=== PATIENT | female | born 1960 | race Caucasian/White ===

== ENCOUNTER → 2019-09-26 07:52 | Outpatient (CLI) | payer OTHER, SELFPAY ==
--- NOTE | ~2019-09-26 | MMUS_ITS ---
EXAMINATION: MM diagnostic mammo unilat LT, US breast LT limited HISTORY: Left breast mass on screening mammogram TECHNIQUE: Additional 3-D tomosynthesis images of the left breast were performed and synthetic 2-D im ages were generated. CAD analysis was submitted and interpreted. High resolution limited left breast ultrasound was performed. COMPARISON: 09/02/2019, 08/27/2018, 08/21/2017 FINDINGS: MAMMOGRAPHIC FINDINGS: There is a 9.8 x 6.2 mm oval, circumscribed, equal density mass in the middle third of the outer wai st at the 3:00 location 8 cm from the nipple. There is also an adjacent 5 mm mass with similar mammog raphic features. No suspicious calcification or architectural distortion are identified. ULTRASOUND: There is a 10 mm x 3 mm oval, circumscribed, parallel, hypoechoic mass with no posterior features or internal vascularity at the 2:00 location 5 cm from the nipple. A 6 mm x 3 mm mass with similar sonog raphic features is also seen at the 2:00 location 5 cm from the nipple. IMPRESSION: 1. Probably benign left breast mass. 2. Recommend 6 month follow-up left diagnostic mammogram and ultrasound. BI-RADS category 3, probably benign findings. Reviewed, dictated and finalized at location A. NCIAL SERVICES AUDITOR IMPRESSION: 1. Probably benign left breast mass. 2. Recommend 6 month follow-up left diagnostic mammogram and ultrasound. BI-RADS category 3, probably benign findings.
== END ==
PROVIDERS: Visit Provider Obstetrics & Gynecology
DX: R92.8 Other abnormal and inconclusive findings on diagnostic imaging of breast (principal)
CPT/HCPCS: 76642; 77065

== ENCOUNTER 2020-05-01 09:51 | Emergency (ER) | payer OTHER, SELFPAY ==
--- NOTE | ~2020-05-01 | CT_ITS ---
EXAMINATION: CT abdomen pelvis w con DATE: 05/01/2020 13:18 INDICATION: Constipation. Left abdominal pain. TECHNIQUE: Computed tomography (CT) of the abdomen and pelvis was performed with 100 mL Omnipaque 350 intravenous contrast. Automated exposure control and iterative reconstruction technique were employe d. The dose-length product was 1075.78 mGy-cm. COMPARISON: CT abdomen and pelvis 06/02/2019 FINDINGS: The visualized portions of the lung bases demonstrate mild atelectasis in right lower lobe. No pleural effusion. The heart size is normal. No pericardial effusion. There is a small sliding hia luke hernia. The liver, gallbladder, spleen, pancreas, adrenal glands, and kidneys are normal. There a re no dilated loops of bowel. There is diverticulosis of the colon without evidence of diverticulitis . There is a small volume of stool in the colon. The appendix is normal. There are no pathologically enlarged lymph nodes. There is no free intraperitoneal fluid. There is mild thoracolumbar spondylosis . IMPRESSION: 1. Small sliding hiatal hernia. Reviewed, dictated and finalized at location A.
[2020-05-01 10:04] VITALS: BP 136/75; PULSE 98; RESP 18; TEMP 36.7; O2SAT 95
[2020-05-01 10:14] LABS: Basophils Percent Auto 0.2 % (0.2-1.2); Eosinophils Absolute Auto 0.1 K/mm3 (0-0.3); Hemoglobin 14.7 g/dL (12.0-15.0); Immature Granulocyte Absolute 0.15 K/mm3 (0.00-0.031); Immature Granulocyte Percent A 1.7 % (0-0.5); Lymphocytes Absolute Auto 1.43 K/mm3 (0.9-3.2); Lymphocytes Percent Auto 16.3 % (18.3-44.2); Mean Corpuscular HGB Conc 33.4 g/dl (32-36); Mean Corpuscular Hemoglobin 28.6 pg (26-34); Mean Corpuscular Volume 85.6 fl (80-100); Monocytes Absolute Auto 0.7 K/mm3 (0.1-0.6); Monocytes Percent Auto 8.2 % (2.6-8.5); Neutrophils Absolute Auto 6.4 K/mm3 (1.3-6.7); Neutrophils Percent Auto 72.6 % (45.5-73.1); Platelet Count Result 259 k/mm3 (150-375); Red Blood Count 5.14 M/mm3 (4.2-5.4); Red Cell Distribution Width 13.4 % (11.5-14.5); White Blood Count 8.8 K/mm3 (4.5-10.0)
[2020-05-01 10:27] LABS: Alanine Aminotransferase 25 U/L (4-35); Albumin Level 4.3 g/dL (3.5-5.1); Alkaline Phosphatase 84 U/L (38-126); Anion Gap 6 mmol/L (8-16); Aspartate Amino Transferase 28 U/L (14-36); Bilirubin,Total 0.6 mg/dL (0.2-1.3); Blood Urea Nitrogen 11 mg/dL (7-17); Calcium 9.3 mg/dL (8.4-10.2); Carbon Dioxide 25 mmol/L (22-30); Chloride 107 mmol/L (98-107); Estimated CRCL calculation 97 ml/min; Estimated Glomerular Filt Rate > 60; Glucose 125 mg/dL (65-105); Lipase 53 U/L (23-300); Sodium 138 mmol/L (137-145)
[2020-05-01 11:00] LABS: Add Urine Microscopic? YES; Appearance Urine Cloudy (Clear); Bacteria Urine Trace /hpf; Bilirubin Urine Negative (Negative); Blood Urine 1+ (Negative); Color Urine Yellow (Yellow); Glucose Urine UA Negative (Negative); Ketones Urine Negative (Negative); Leukocyte Esterase Ur 1+ LEU/UL (Negative); Mucus Urine Rare /lpf; Nitrate Urine Negative (Negative); Protein Urine Negative (Negative); RBC Urine 0-2 /hpf (0-2); Specific Grav Ur 1.013 (1.001-1.035); Squamous Epithelial Cell Urine Many /hpf (Few); Transitional Epi Cells Urine Rare /hpf (None Seen); Urobilinogen Urine Negative mg/dL (<2.0)
[2020-05-01] MEDS: SODIUM CHLORIDE 0.9% IV 1,000 ML 999 ML IV CONT (12:59)
--- NOTE | 2020-05-01 14:24 | ED.ABDPAIN ---
HPI - Abdominal Pain General Chief Complaint: Abdominal Pain <KACI Hickey Last Filed: 05/01/20 14:32> Stated Complaint: left side pain/constipation <KACI Hickey Last Filed: 05/01/20 14:32> Time Seen by Provider: 05/01/20 12:36 <KACI Hickey Last Filed: 05/01/20 14:32> Source: patient <KACI Hickey Last Filed: 05/01/20 14:32> Mode of arrival: ambulatory <KACI Hickey Last Filed: 05/01/20 14:32> Limitations: no limitations <KACI Hickey Last Filed: 05/01/20 14:32> History of Present Illness HPI narrative: Patient is a 59-year-old female who presents to emergency department for evaluation of left-sided abdominal pain and pressure noting history of constipation has been attempting [id number] medications with no improvement symptoms of been present for 1 week or more patient notes history of chronic constipation. Patient denies URI symptoms fever chills vomiting diarrhea rectal bleeding or melena and on arrival is in the room in no distress pain does not radiate and is made worse with eating <KACI Hickey Last Filed: 05/01/20 14:32> Related Data Home Medications: Home Medications Medication Instructions Recorded Confirmed alendronate 70 mg tablet 70 mg PO WEEKLY 04/16/20 04/16/20 <KACI Hickey Last Filed: 05/01/20 14:32> Allergies/Adverse Reactions: Allergies Allergy/AdvReac Type Severity Reaction Status Date / Time neomycin Allergy Intermediate BLISTERS, Verified 05/01/20 12:27 BREAKS OUT bacitracin Allergy Unknown Unknown Verified 05/01/20 12:27 Penicillins Allergy Unknown Unknown Verified 05/01/20 12:27 polymyxin B Allergy Unknown Unknown Verified 05/01/20 12:27 promethazine Allergy Unknown Unknown Verified 05/01/20 12:27 Sulfa (Sulfonamide Allergy Unknown Unknown Verified 05/01/20 12:27 Antibiotics) <KACI Hickey Last Filed: 05/01/20 14:32> Review of Systems Review of Systems: All systems reviewed & are unremarkable except as noted in HPI and below <Deniz Bourgeois PA-C - Last Filed: 05/01/20 14:32> PMFSH Past Medical History Medical History: Medical History (Updated 05/01/20 @ 14:31 by Deniz Bourgeois PA-C) Anxiety Epigastric abdominal pain Essential (primary) hypertension Hyperlipidemia <Deniz Bourgeois PA-C - Last Filed: 05/01/20 14:32> Social History Social History: Social History Smoking status: Never smoker Alcohol intake: never Gender identity (if verbalized by the patient): Female <Deniz Bourgeois PA-C - Last Filed: 05/01/20 14:32> Exam Narrative: Exam Narrative: GENERAL: Well-appearing, well-nourished, and in no acute distress. HEAD: Normocephalic, atraumatic. EYES: PERRLA and EOMI. ENT: Nares clear, no rhinorrhea or epistaxis. Mucous membranes moist. CHEST: Clear to auscultation. No respiratory distress. No wheezes rales or rhonchi HEART: Regular rate and rhythm. No murmur heard. Normal peripheral pulses. ABDOMEN: Soft, left-sided abdominal tenderness to palpation, nondistended EXTREMITIES: Normal range of motion. No edema. SKIN: Warm, dry, no rash. NEURO: No focal deficits. Alert and oriented x3. PSYCH: Normal mood and affect. <Deniz Bourgeois PA-C - Last Filed: 05/01/20 14:32> Course Course Emergency Course: Patient in the room in no distress aware of case findings treatment plan and diagnosis agreeing to follow-up as directed or to return if symptoms worsen or concerns patient was hydrated in the emergency department <Deniz Bourgeois PA-C - Last Filed: 05/01/20 14:32> Vital Signs Vital signs: Vital Signs Temperature 36.7 C 05/01/20 10:04 Pulse Rate 98 05/01/20 10:04 Respiratory Rate 18 05/01/20 10:04 Blood Pressure 136/75 05/01/20 10:04 Pulse Oximetry 95 05/01/20 10:04 Tempera
[2020-05-01 15:10] VITALS: BP 133/74; PULSE 88; RESP 18; O2SAT 99
== END 2020-05-01 15:11 | disposition home or self-care (01) ==
PROVIDERS: Emergency Provider Emergency Medicine; PCP Internal Medicine
DX: R10.9 Unspecified abdominal pain (principal); I10 Essential (primary) hypertension; E78.5 Hyperlipidemia, unspecified
CPT/HCPCS: 36415; 74177; 80053; 81001; 81025; 83690; 85025; 87086; 87088; 96360; 99284; J7030; Q9967

== ENCOUNTER → 2020-06-08 07:57 | Outpatient (CLI) | payer OTHER, SELFPAY ==
--- NOTE | ~2020-06-08 | US_ITS ---
US right upper quadrant INDICATION: Epigastric pain. PROCEDURE: Realtime right upper abdominal ultrasound. COMPARISON: No prior studies for comparison. FINDINGS: The pancreas is normal without focal mass or pancreatic ductal dilation. There is fatty in filtration of the liver. There is normal directional flow in the portal vein. The gallbladder is normal without stones, gallbladder wall thickening or pericholecystic fluid. Comm on bile duct measures 3 mm. No sonographic Stewart's sign. IMPRESSION: 1: Fatty infiltration of the liver. Reviewed, dictated and finalized at location A.
== END ==
PROVIDERS: Visit Provider Internal Medicine Gastroenterology
DX: R10.13 Epigastric pain (principal); K76.0 Fatty (change of) liver, not elsewhere classified
CPT/HCPCS: 76705

== ENCOUNTER → 2020-07-19 09:55 | Outpatient (CLI) | payer OTHER, SELFPAY ==
--- NOTE | ~2020-07-19 | CT_ITS ---
EXAMINATION: CT abdomen pelvis wo con DATE: 07/19/2020 10:16 INDICATION: Right renal stone TECHNIQUE: Computed tomography (CT) of the abdomen and pelvis was performed without intravenous contr ast. Automated exposure control and iterative reconstruction technique were employed. Exam dose: 871 .34 mGy-cm total exam DLP. COMPARISON: 05/01/2020 CT abdomen pelvis noncontrast examination FINDINGS: The lower lung zones are clear of infiltrate or consolidation. No normal heart size. No pericardial or pleural effusion. Small sliding hiatal hernia. The liver, gallbladder, spleen, pancreas, and adrenal glands and kidneys are unremarkable on this [place] ited noncontrast examination. No urinary tract calculus or hydroureteronephrosis. The uterus and adne xal areas and urinary bladder are unremarkable. There is atherosclerotic calcification of the abdominal aorta and at the origins of the celiac and lopez perior mesenteric arteries. No intraperitoneal or retroperitoneal or pelvic mass lesion or adenopathy or ascites. Normal appendix. Diverticulosis of the colon; no CT evidence of diverticulitis. No bowel obstruction, bowel wall thickening, pneumatosis or intraperitoneal free air. Small fat-containing umbilical hernia. No suspicious osteolytic or osteoblastic lesions are identified. IMPRESSION: Small sliding hiatal hernia Diverticulosis of the colon Reviewed, dictated and finalized at Location A. Reviewed, dictated and finalized at location A. ICULTURAL SERVICES SUPERVISOR
--- NOTE | ~2020-07-19 | XR_ITS ---
EXAMINATION: XR abdomen/kub 1V INDICATION: Hematuria TECHNIQUE: Supine views of the abdomen were obtained on 2 radiographs. COMPARISON: 06/02/[address] from today FINDINGS: No urinary tract calculi are identified. There is a moderate volume of colonic stool. No di lated loops of bowel are evident. The visualized lung bases are clear. IMPRESSION: 1. No urolithiasis identified. Reviewed, dictated and finalized at location A. NG CAN WORKER
== END ==
PROVIDERS: PCP Internal Medicine; Visit Provider Nurse Practitioner Family
DX: N20.0 Calculus of kidney (principal); K44.9 Diaphragmatic hernia without obstruction or gangrene; K57.90 Diverticulosis of intestine, part unspecified, without perforation or abscess without bleeding
CPT/HCPCS: 74018; 74176

== ENCOUNTER → 2020-11-29 07:49 | Outpatient (CLI) | payer OTHER, SELFPAY ==
--- NOTE | ~2020-11-29 | MMUS_ITS ---
EXAMINATION: MM diagnostic naomi BI w constanza, US breast BI limited HISTORY: Follow-up for probably benign left breast mass TECHNIQUE: Craniocaudal, mediolateral, and mediolateral oblique 3-D tomosynthesis images of the frank ts were performed and synthetic 2-D images were generated. CAD analysis was submitted and interpreted . High resolution limited bilateral breast ultrasound was performed. COMPARISON: 12/23/2019, 09/26/2019, 09/02/2019, 08/27/2018, 08/21/2017 BREAST PARENCHYMAL COMPOSITION: The breasts are almost entirely fatty. FINDINGS: MAMMOGRAPHIC FINDINGS: Left breast: There is a 12 mm oval, circumscribed, low density mass in the middle third of the upper outer quadrant of the breast at the 2:00 location 8 cm from the nipple which demonstrates slight incr ease in size. No suspicious calcification or architectural distortion are identified. Right breast: There is a 4 mm obscured equal density mass in the anterior third of the breast at the 12:00 location 6 cm from the nipple. No suspicious calcification or architectural distortion are iden tified. ULTRASOUND: Left breast: There is a 12 mm cyst at the 2:00 location 6 cm from the nipple. Right breast: There is a 3 mm cyst at the 11:30 location 4 cm from the nipple. IMPRESSION: 1. Bilateral breast cysts without mammographic or sonographic evidence of malignancy. 2. Recommend routine screening mammography in one year. BI-RADS Category 2: Benign finding(s). Reviewed, dictated and finalized at location A. IMPRESSION: 1. Bilateral breast cysts without mammographic or sonographic evidence of malig pedrito. 2. Recommend routine screening mammography in one year. BI-RADS Category 2: Benign finding(s).
== END ==
PROVIDERS: Visit Provider Obstetrics & Gynecology
DX: R92.8 Other abnormal and inconclusive findings on diagnostic imaging of breast (principal)
CPT/HCPCS: 76642; 77062; 77066; G0279

== ENCOUNTER → 2021-01-10 09:12 | Outpatient (CLI) | payer OTHER, SELFPAY ==
--- NOTE | ~2021-01-10 | XR_ITS ---
EXAMINATION: CT abdomen pelvis wo con, XR abdomen/kub 1V DATE: 01/10/2021 09:35 INDICATION: Right renal stone and microscopic hematuria. TECHNIQUE: 1. Computed tomography (CT) of the abdomen and pelvis was performed without intravenous contrast. Aut omated exposure control and iterative reconstruction technique were employed. The dose-length product was 974.44 mGy-cm. 2. Supine AP view of the abdomen and pelvis was obtained on 2 overlapping images. COMPARISON: 07/19/2020 FINDINGS: CT: Lung bases are clear. Heart size is normal. No pericardial or pleural effusion. Small sliding-type hi atal hernia. Liver, gallbladder, spleen, pancreas and bilateral adrenal glands are normal. Kidneys an d ureters are normal with no urolithiasis, hydroureteronephrosis or perinephric/ureteral stranding. B ladder is normal. Uterus and bilateral adnexa are unremarkable. There is moderate colonic diverticulo sis with a descending and sigmoid predominance. There is no adjacent inflammatory change to suggest diverticulitis. Small bowel and appendix are normal. No free intraperitoneal gas or fluid. No patholo gically enlarged abdominal or pelvic lymphadenopathy. 1-2 mm anterolisthesis L4 on L5 with severe linda ateral facet osteoarthritis. KUB: Normal bowel gas pattern. No urolithiasis. IMPRESSION: 1. No urolithiasis or acute intra-abdominal/pelvic process. 2. Small sliding-type hiatal hernia. 3. Diverticulosis. Reviewed, dictated and finalized at location A. IMPRESSION: 1. No urolithiasis or acute intra-abdominal/pelvic process. 2. Small sliding-type hiatal hernia. 3. Diverticulosis.
== END ==
PROVIDERS: PCP Internal Medicine; Visit Provider Nurse Practitioner Adult Health
DX: N20.0 Calculus of kidney (principal); K44.9 Diaphragmatic hernia without obstruction or gangrene; K57.30 Diverticulosis of large intestine without perforation or abscess without bleeding
CPT/HCPCS: 74018; 74176

== ENCOUNTER → 2021-04-17 09:09 | Outpatient (CLI) | payer OTHER, SELFPAY ==
--- NOTE | ~2021-04-17 | XR_ITS ---
EXAMINATION: XR lumbar spine 2-3V DATE: 04/17/2021 09:41 INDICATION: Low back pain TECHNIQUE: Anteroposterior and lateral views of the lumbar spine, and cone-down lateral view of the l umbosacral junction were obtained. COMPARISON: CT, 01/10/2021 FINDINGS: There are 2 mm of stable retrolisthesis of L5 on S1. The vertebral body heights are maintai huyen. There is no fracture. There is mild loss of intervertebral disc space height at L5-S1. Small deg enerative osteophytes project from the anterior endplates of multiple vertebral bodies. Mild to moder ate facet osteoarthritis is noted in the lower lumbar spine. There is moderate spondylosis of the low er thoracic spine. IMPRESSION: 1. Mild lumbar spondylosis without acute findings or significant interval change. Reviewed, dictated and finalized at location B. IMPRESSION: 1. Mild lumbar spondylosis without acute findings or significant interval rory pineda
== END ==
PROVIDERS: PCP Internal Medicine; Visit Provider Internal Medicine
DX: K76.0 Fatty (change of) liver, not elsewhere classified (principal); I10 Essential (primary) hypertension; M47.816 Spondylosis without myelopathy or radiculopathy, lumbar region
CPT/HCPCS: 72100

== ENCOUNTER 2021-04-29 06:22 | Emergency (ER) | payer OTHER, SELFPAY ==
--- NOTE | ~2021-04-29 | CT_ITS ---
EXAMINATION: CT brain wo con EXAM DATE: 04/29/2021 08:10 INDICATION: Dizziness. TECHNIQUE: Spiral CT of the head was performed without contrast. Axial, coronal and sagittal images were reviewed. The dose-length product (DLP) for this examination was 605.33 mGy-cm. The exposure w as tailored according to patient size, and iterative reconstruction (ASIR) was used as additional dos e reduction technique. There is no prior study for comparison. FINDINGS: Anechoic cystic region within the right paramedian frontal lobe white matter, could be smal l region of encephalomalacia from old infarction, less likely cysticercosis or cystic tumor or metast atic lesion. There is no associated vasogenic edema suspected from this but CT is relatively insensit yemi. A follow-up nonemergent brain MRI without and with contrast is recommended for further evaluatio n. Mild microangiopathy and cerebral atrophy. There is no acute intraparenchymal hemorrhage. No evid ence of intraparenchymal brain mass lesion. No evidence of acute infarction. The ventricles are nor mal in size. There are no extra-axial collections. There are no acute calvarial fractures. The orbi ts are unremarkable. Soft tissue is unremarkable. The visualized sinuses and mastoid air cells are well aerated. IMPRESSION: 1. Small cystic region right frontal lobe white matter, considerations include encephalomalacia and less likely mass. Follow-up nonemergent MR without and with contrast recommended. 2. Mild age-related findings. 3. No acute findings. Reviewed, dictated and finalized at location B. IMPRESSION: 1. Small cystic region right frontal lobe white matter, considerations include encephalomalacia and less likely mass. Follow-up nonemergent MR without and wi th contrast recommended. 2. Mild age-related findings. 3. No acute findings.
[2021-04-29 06:33] VITALS: BP 181/82; PULSE 108; RESP 14; TEMP 36.8; O2SAT 99
--- NOTE | 2021-04-29 07:36 | ECG_ITS ---
Measurements Intervals [place] Rate: 82 P: 48 OH: 155 QRS: 23 QRSD: 91 T: -2 QT: 356 QTc: 416 Interpretive Statements SINUS RHYTHM BORDERLINE ST-T WAVE ABNORMALITY- INFERIOR LEADS BASELINE ARTIFACT- I, II, III, AVL, AVF, V4-V6 BORDERLINE ECG Electronically Signed On 04-29-2021 7:53:22 CDT by Jose Stahl D.O.
[2021-04-29 08:05] LABS: Basophils Percent Auto 0.4 % (0.2-1.2); Eosinophils Absolute Auto 0.1 K/mm3 (0-0.3); Eosinophils Percent Auto 0.8 % (0-4.4); Hematocrit 45.5 % (37.0-47.0); Hemoglobin 14.8 g/dL (12.0-15.0); Immature Granulocyte Absolute 0.03 K/mm3 (0.00-0.031); Immature Granulocyte Percent A 0.4 % (0-0.5); Lymphocytes Absolute Auto 0.96 K/mm3 (0.9-3.2); Lymphocytes Percent Auto 11.5 % (18.3-44.2); Mean Corpuscular HGB Conc 32.5 g/dl (32-36); Mean Corpuscular Hemoglobin 28.2 pg (26-34); Mean Corpuscular Volume 86.8 fl (80-100); Mean Platelet Volume 9.8 fl (7.4-10.4); Monocytes Absolute Auto 0.8 K/mm3 (0.1-0.6); Monocytes Percent Auto 9.2 % (2.6-8.5); Neutrophils Absolute Auto 6.5 K/mm3 (1.3-6.7); Neutrophils Percent Auto 77.7 % (45.5-73.1); Platelet Count Result 247 k/mm3 (150-375); Red Blood Count 5.24 M/mm3 (4.2-5.4); Red Cell Distribution Width 13.4 % (11.5-14.5); White Blood Count 8.4 K/mm3 (4.5-10.0)
--- NOTE | 2021-04-29 08:05 | ED.GENADULT ---
HPI - General Adult General Chief complaint: Recheck/Abnormal Lab/Rx <Laith Griffin MD - Last Filed: 04/29/21 08:07> Stated complaint: BP top number going up bottom number stays normal <Laith Griffin MD - Last Filed: 04/29/21 08:07> Time Seen by Provider: 04/29/21 07:57 <Laith Griffin MD - Last Filed: 04/29/21 08:07> Source: patient <Laith Griffin MD - Last Filed: 04/29/21 08:07> Mode of arrival: ambulatory <Laith Griffin MD - Last Filed: 04/29/21 08:07> Limitations: no limitations <Laith Griffin MD - Last Filed: 04/29/21 08:07> History of Present Illness HPI narrative: Patient is a 60-year-old female complaining of elevated blood pressure at home accompanied by dizziness and nausea that started this morning. Patient states that she has been dealing with her blood pressure for the past few weeks, her primary care recently adjusted her blood pressure medication. Patient denies any speech or visual disturbance, focal weakness or numbness, unsteady gait, chest pain, shortness of breath, abdominal pain, nausea, vomiting, diarrhea, fever or chills. <Laith Griffin MD - Last Filed: 04/29/21 08:07> Related Data Allergies/adverse reactions: Allergies Allergy/AdvReac Type Severity Reaction Status Date / Time neomycin Allergy Intermediate BLISTERS, Verified 04/29/21 06:37 BREAKS OUT Sulfa (Sulfonamide Allergy Unknown Unknown Verified 04/29/21 06:37 Antibiotics) <Laith Griffin MD - Last Filed: 04/29/21 08:07> Review of Systems Review of Systems: All systems reviewed & are unremarkable except as noted in HPI and below <Laith Griffin MD - Last Filed: 04/29/21 08:07> Constitutional: Constitutional: Denies body ache(s), Denies chills, Denies excessive sweating, Denies fatigue, Denies fever(s), Denies headache(s), Denies lethargy, Denies malaise, Denies weakness and Denies weight loss <Laith Griffin MD - Last Filed: 04/29/21 08:07> Eyes: Eyes: Denies blurry vision, Denies change in vision and Denies loss of vision <Laith Griffin MD - Last Filed: 04/29/21 08:07> ENT: Denies dizziness, Denies ear discharge, Denies headache(s), Denies lip swelling, Denies epistaxis, Denies nasal congestion, Denies neck pain, Denies throat swelling and Denies tongue swelling <Laith Griffin MD - Last Filed: 04/29/21 08:07> Cardiovascular: Cardiovascular: Denies chest pain, Denies chest pain at rest, Denies chest pain with activity, Denies diaphoresis, Denies rapid heart rate, Denies edema, Denies irregular heart rhythm, Denies lightheadedness, Denies palpitations, Denies dyspnea and Denies dyspnea on exertion <Laith Griffin MD - Last Filed: 04/29/21 08:07> Respiratory: Respiratory: Denies chest congestion, Denies cough, Denies hemoptysis, Denies dyspnea and Denies dyspnea on exertion <Laith Griffin MD - Last Filed: 04/29/21 08:07> Gastrointestinal: Gastrointestinal: Denies abdominal pain, Denies melena, Denies hematochezia, Denies diarrhea, Denies nausea, Denies vomiting and Denies hematemesis <Laith Griffin MD - Last Filed: 04/29/21 08:07> Musculoskeletal: Musculoskeletal: Denies abnormal gait, Denies deformity, Denies joint swelling, Denies limited range of motion, Denies neck pain and Denies numbness <Laith Griffin MD - Last Filed: 04/29/21 08:07> Neurologic: Denies Abnormal speech present, Denies abnormal gait, Denies confusion, Reports dizziness, Denies headache(s), Denies focal weakness, Denies loss of vision, Denies numbness, Denies Other visual disturbances, Denies Sensory deficit (Neuro) and Denies weakness <Laith Griffin MD - Last Filed: 04/29/21 08:07> Psychiatric: Psychiatric: Denies confusion, Denies depression, Denies auditory hallucinations, Denies homicidal ideation and Denies suicidal ideation <Laith Griffin MD - Last Filed: 04/29/21 08:07> Endocrine: Endocrine: Denies cold intolerance, Denies e
[2021-04-29] MEDS: PROMETHAZINE HCL 25 MG/ML AMPUL 12.5 MG IV PUSH (08:15)
[2021-04-29 08:19] LABS: Anion Gap 9 mmol/L (8-16); Blood Urea Nitrogen 14 mg/dL (7-17); Calcium 9.4 mg/dL (8.4-10.2); Carbon Dioxide 24 mmol/L (22-30); Chloride 108 mmol/L (98-107); Estimated CRCL calculation 94 ml/min; Estimated Glomerular Filt Rate > 60; Glucose 126 mg/dL (65-110); Potassium 4.3 mmol/L (3.4-5.0); Sodium 141 mmol/L (137-145)
[2021-04-29 08:33] LABS: Troponin I < 0.012 ng/mL (0.000-0.034)
[2021-04-29] MEDS: MECLIZINE HCL 25 MG TABLET PO (09:35)
[2021-04-29] MEDS: ACETAMINOPHEN 500 MG TABLET 1000 MG PO (09:35)
[2021-04-29 10:20] VITALS: BP 146/86; PULSE 74; RESP 16; O2SAT 97
== END 2021-04-29 10:21 | disposition home or self-care (01) ==
PROVIDERS: Emergency Medicine; Emergency Provider Emergency Medicine; PCP Internal Medicine
DX: R42 Dizziness and giddiness (principal); I10 Essential (primary) hypertension; E78.5 Hyperlipidemia, unspecified; F41.9 Anxiety disorder, unspecified
CPT/HCPCS: 36415; 70450; 80048; 84484; 85025; 93005; 96374; 99284; A9270; J2550

== ENCOUNTER 2021-05-08 09:22 | Outpatient (CLI) | payer OTHER, SELFPAY ==
--- NOTE | 2021-05-08 09:31 | EST_ITS ---
Patient Info Name: Alison Godinez Age: 60 years : 1960 Gender: Female Ht: 66 in Wt: 215 lbs BSA: 2.17 m2 HR: 81 bpm BP: 118 / 69 mmHg Heart Rhythm: Sinus Rhythm Exam Date: 05/08/2021 9:44 AM Exam Location: [facility] Stress Patient Status: Outpatient Admit Date: 05/08/2021 Staff Ordering Physician: Kristine Cheung Attending Provider: Kristine Cheung Exercise Technologist: Katherin Finney CT Exercise Physician: Jose Stahl DO Exam Type: CA stress test treadmill Study Info An exercise stress test was performed. Summary 1. 1. Negative [place] exercise stress test for ischemic ST changes by ECG criteria. 2. 2. Mildly reduced functional capacity, achieving 7 METs of workload. 3. 3. Hypertensive response to exercise. 4. 4. Appropriate HR response to exercise. 5. 5. Appropriate HR recovery at 1 minute post exercise. 6. 6. No imaging with stress testing. 7. 7. Patient informed of the above results. Protocol: [place] Stress ECG Details Stage: REST Duration (min): 1 min : 15 sec Speed (mph): 0.0 Grade (%): 0 HR (bpm): 84 SBP (mmHg): 118 DBP (mmHg): 69 METS: --- Stage: REST Duration (min): 31 min : 40 sec Speed (mph): 0.0 Grade (%): 0 HR (bpm): 95 SBP (mmHg): 118 DBP (mmHg): 69 METS: --- Stage: STAGE 1 Duration (min): 1 min : 0 sec Speed (mph): 1.7 Grade (%): 10 HR (bpm): 109 SBP (mmHg): 118 DBP (mmHg): 69 METS: --- Stage: STAGE 1 Duration (min): 2 min : 0 sec Speed (mph): 1.7 Grade (%): 10 HR (bpm): 120 SBP (mmHg): 118 DBP (mmHg): 69 METS: --- Stage: STAGE 1 Duration (min): 3 min : 0 sec Speed (mph): 1.7 Grade (%): 10 HR (bpm): 127 SBP (mmHg): 193 DBP (mmHg): 69 METS: --- Stage: STAGE 2 Duration (min): 1 min : 0 sec Speed (mph): 2.5 Grade (%): 12 HR (bpm): 139 SBP (mmHg): 193 DBP (mmHg): 69 METS: --- Stage: STAGE 2 Duration (min): 2 min : 0 sec Speed (mph): 2.5 Grade (%): 12 HR (bpm): 145 SBP (mmHg): 205 DBP (mmHg): 73 METS: --- Stage: STAGE 1 Duration (min): 3 min : 0 sec Speed (mph): 1.7 Grade (%): 10 HR (bpm): 127 SBP (mmHg): 193 DBP (mmHg): 69 METS: --- Stage: STAGE 2 Duration (min): 3 min : 0 sec Speed (mph): 2.5 Grade (%): 12 HR (bpm): 151 SBP (mmHg): 205 DBP (mmHg): 73 METS: --- Stage: RECOVERY Duration (min): 0 min : 59 sec Speed (mph): 0.0 Grade (%): 0 HR (bpm): 141 SBP (mmHg): 203 DBP (mmHg): 73 METS: --- Stage: RECOVERY Duration (min): 1 min : 59 sec Speed (mph): 0.0 Grade (%): 0 HR (bpm): 127 SBP (mmHg): 203 DBP (mmHg): 73 METS: --- Stage: RECOVERY Duration (min): 2 min : 59 sec Speed (mph): 0.0 Grade (%): 0 HR (bpm): 117 SBP (mmHg): 183 DBP (mmHg): 69 METS: --- Rest HR: 95 bpm
== END 2021-05-08 09:23 | disposition home or self-care (01) ==
LOC: ANHCARD 09:30
PROVIDERS: PCP Internal Medicine; Visit Provider Nurse Practitioner
DX: I10 Essential (primary) hypertension (principal)
CPT/HCPCS: 93017

== ENCOUNTER → 2021-05-21 07:46 | Outpatient (CLI) | payer OTHER, SELFPAY ==
--- NOTE | ~2021-05-21 | MR_ITS ---
EXAMINATION: MR brain/brain stem wo/w con EXAM DATE: 05/21/2021 09:15 INDICATION: R93.0 - Abnormal findings on diagnostic imaging of skull ... Abnormal finding of Skull/he ad. Small right frontal subcortical white matter cystic region. TECHNIQUE: Magnetic resonance imaging (MRI) of the brain/brain stem obtained without contrast. Sagit luke T1, axial diffusion, gradient echo (T2*), T1, T2, FLAIR sequences obtained. Patient was then inj ected with 19 cc intravenous Multihance contrast. Axial and coronal postcontrast T1 weighted sequence s obtained. Correlation is made to head CT 04/29/2021. FINDINGS: There is small right frontal lobe subcortical cystic region measuring 5 x 7 mm in diameter. No mural nodule, adjacent vasogenic edema, restricted diffusion or enhancement associated with this, is therefore not likely a clinically significant finding. Could be focal dilation of perivascular sp rosalind or old cysticercosis. There are no areas of restricted diffusion to suggest acute infarction. There is mild microangiopathy and atrophy. There is no acute hemorrhage seen on the T2*, a hemosiderin sensitive sequence. The ve ntricles are normal in size. There are no extra-axial collections. Flow voids are seen in the cereb ral arteries on the T2-weighted sequences consistent with their expected patency. The orbits are unr emarkable. Soft tissue is unremarkable. There are no areas of abnormal enhancement on the postcont rast images. IMPRESSION: 1. Small right frontal subcortical cystic region, not likely clinically significant. 2. Mild age related findings. 3. Otherwise unremarkable exam. Reviewed, dictated and finalized at location A. IMPRESSION: 1. Small right frontal subcortical cystic region, not likely clinically signif icant. 2. Mild age related findings. 3. Otherwise unremarkable exam.
[2021-05-21 08:26] LABS: Estimated Glomerular Filt Rate > 60
== END ==
PROVIDERS: PCP Internal Medicine; Visit Provider Nurse Practitioner
DX: R93.0 Abnormal findings on diagnostic imaging of skull and head, not elsewhere classified (principal)
CPT/HCPCS: 70553; A9577

== ENCOUNTER → 2021-09-06 10:32 | Outpatient (CLI) | payer OTHER, SELFPAY ==
--- NOTE | ~2021-09-06 | DEXA_ITS ---
Bone Density Report Name: SHAWNEE OMALLEY Age: 61 Sex: Female Ethnicity: White Date of : 1960 Indication: osteopenia; parental hip fracture; height loss; prior fracture; Referring Provider: Jesse Pollard Study: Bone densitometry was performed. Exam Date: September 06, 2021 Accession number: [id number] Bone Density: Region BMD T-score Z-score Classification AP Spine (L1-L4) 0.833 -1.9 -0.3 Osteopenia Femoral Neck (Left) 0.572 -2.5 -1.1 Osteoporosis Total Hip (Left) 0.844 -0.8 0.3 Normal Femoral Neck (Right) 0.629 -2.0 -0.6 Osteopenia Total Hip (Right) 0.852 -0.7 0.4 Normal Total Hip Mean 0.848 -0.8 0.4 Normal World Health Organization criteria for BMD impression classify patients as: Normal (T-score at or above -1.0), Osteopenia (T-score between -1.0 and -2.5), or Osteoporosis (T-score at or below -2.5). 10-year Fracture Risk: FRAX not reported because: Some T-score for Spine Total or Hip Total or Femoral Neck at or below -2.5 Previous Exams: Region Exam Age BMD T-score BMD Change BMD Change Date g/cm2 vs Baseline vs Previous AP Spine(L1-L4) 09/06/2021 61 0.833 -1.9 -0.038* 0.003 08/07/2019 59 0.830 -2.0 -0.041 -0.031 07/29/2017 56 0.861 -1.7 -0.010 0.009 07/27/2015 54 0.852 -1.8 -0.019 -0.002 07/22/2013 52 0.854 -1.8 -0.017 -0.033 06/11/2011 50 0.887 -1.5 0.016 -0.024 05/09/2010 49 0.911 -1.2 0.040 0.040 04/04/2008 47 0.871 -1.6 Total Hip(Left) 09/06/2021 61 0.844 -0.8 -0.041* 0.021 08/07/2019 59 0.822 -1.0 -0.062 -0.036 07/29/2017 56 0.858 -0.7 -0.026 -0.015 07/27/2015 54 0.873 -0.6 -0.011 0.034 07/22/2013 52 0.839 -0.8 -0.045 0.022 06/11/2011 50 0.818 -1.0 -0.067* -0.015 05/09/2010 49 0.833 -0.9 -0.052 -0.052 04/04/2008 47 0.884 -0.5 Total Hip(Right) 09/06/2021 61 0.852 -0.7 -0.042* 0.037 08/07/2019 59 0.815 -1.0 -0.079 -0.042 07/29/2017 56 0.857 -0.7 -0.037* 0.009 07/27/2015 54 0.849 -0.8 -0.045* 0.006 07/22/2013 52 0.843 -0.8 -0.051 -0.032 06/11/2011 50 0.875 -0.5 -0.019 0.008 05/09/2010 49 0.867 -0.6 -0.027 -0.027 04/04/2008 47 0.894 -0.4 *Denotes significa
== END ==
PROVIDERS: PCP Internal Medicine; Visit Provider Internal Medicine
DX: M81.0 Age-related osteoporosis without current pathological fracture (principal); M85.88 Other specified disorders of bone density and structure, other site; M85.851 Other specified disorders of bone density and structure, right thigh
CPT/HCPCS: 77080

== ENCOUNTER → 2021-09-20 07:51 | Outpatient (CLI) | payer OTHER, SELFPAY ==
--- NOTE | ~2021-09-20 | MM_ITS ---
EXAMINATION: MM screening [facility] BI w [facility] HISTORY: Screening TECHNIQUE: Craniocaudal and mediolateral oblique 3-D tomosynthesis images were obtained and synthetic 2-D images were generated. CAD analysis was submitted and interpreted. COMPARISON: Comparison to multiple prior studies sequentially, with oldest reviewed study dated 08/21. BREAST PARENCHYMAL COMPOSITION: Breast composed of scattered areas of fibroglandular density. FINDINGS: Stable benign-appearing left breast mass in the upper outer quadrant, previously characteri zed as a cyst. There is no evidence of suspicious mass, calcification, or architectural distortion to suggest malignancy in either breast. There has been no suspicious interval change. IMPRESSION: 1. No mammographic evidence of malignancy. 2. Recommend routine screening mammography in one year. BI-RADS Category 2: Benign finding(s). Reviewed, dictated and finalized at location A. ER HAND
== END ==
PROVIDERS: Visit Provider Obstetrics & Gynecology
DX: Z12.31 Encounter for screening mammogram for malignant neoplasm of breast (principal)
CPT/HCPCS: 77063; 77067

== ENCOUNTER 2022-10-19 08:18 | Emergency (ER) | payer OTHER, SELFPAY ==
[2022-10-19 08:34] VITALS: BP 156/85; PULSE 81; RESP 16; TEMP 36.8; O2SAT 99
--- NOTE | 2022-10-19 08:40 | ED.URI ---
HPI - URI/Sore Throat General Chief Complaint: Upper Respiratory Infection Stated Complaint: Covid+ Time Seen by Provider: 10/19/22 08:40 Source: patient Mode of arrival: ambulatory Limitations: no limitations History of Present Illness HPI Narrative: patient is a 62-year-old female that presents with 2 days congestion and postnasal drip. patient states tested positive for COVID on Wednesday and has tested herself every day since. positive test yesterday. denies any fever, chills, headache, loss of taste or smell, sore throat, cough. Related Data Home Medications Medication Instructions Recorded Confirmed polyvinyl alcohol-povidone 2.7 %-2 1 drp EACH EYE 05/23/21 05/01/22 % eye drops Allergies Allergy/AdvReac Type Severity Reaction Status Date / Time neomycin Allergy Intermediate BLISTERS, Verified 10/19/22 08:35 BREAKS OUT Sulfa (Sulfonamide Allergy Unknown Unknown Verified 10/19/22 08:35 Antibiotics) Review of Systems Review of Systems: All systems reviewed & are unremarkable except as noted in HPI and below Constitutional: Constitutional: Denies body ache(s), Denies fever(s), Denies malaise and Denies weakness Eyes: Eyes: Denies loss of vision ENT: Denies otalgia, Denies headache(s), Reports nasal congestion, Reports nasal discharge, Denies sinus pain and Denies sore throat Cardiovascular: Cardiovascular: Denies chest pain, Denies irregular heart rhythm and Denies dyspnea Respiratory: Respiratory: Denies cough and Denies dyspnea Gastrointestinal: Gastrointestinal: Denies abdominal pain, Denies melena, Denies hematochezia, Denies diarrhea, Denies nausea and Denies vomiting Musculoskeletal: Musculoskeletal: Denies back pain, Denies myalgias and Denies arthralgias Integumentary/Breasts: Skin/Breast: Denies pruritus and Denies rash Neurologic: Denies headache(s), Denies loss of vision and Denies weakness Psychiatric: Psychiatric: Reports no additional psychiatric complaints PMFSH Past Medical History Medical History Age-related osteoporosis without current pathological fracture Anxiety COVID-19 Epigastric abdominal pain Essential (primary) hypertension Hyperlipidemia Obese Social History Social History Smoking status: Never smoker Second hand tobacco smoke exposure: No Alcohol intake: never Substance use: never Substance use type: does not use Gender identity (if verbalized by the patient): Female Comments At time of signature, agree with nursing past medical, surgical, social and family history. There is no relevant family history pertinent to the presenting complaint. Exam Const: General: cooperative, healthy appearing, comfortable, no acute distress and well nourished Nutritional Appearance: well nourished Orientation/consciousness: patient oriented x3 Limitations: no limitations HENMT: Head: normal to inspection, normocephalic and atraumatic Ears: external ears normal and TM's normal bilaterally Face/Nose/Sinus: Normal external nose present, Normal nasal mucous membranes and turbinates present, normal facial exam, sinuses nontender and face symmetric Face and sinus: normal facial exam, sinuses nontender and face symmetric Mouth: Yes Normal oral and palatal mucosa present, Yes lip normal and Yes moist mucous membranes Teeth and gingiva: dentition normal Throat: posterior oropharynx normal, tonsils normal, uvula midline and postnasal drainage Eyes: General: appearance normal, both eyes and all related structures Alignment and Position: alignment normal and position normal Periorbital: periorbital findings normal Eyelids: eyelids normal Pupils: Equal, round and reactive pupils present Neck: Neck: normal visual inspection, full ROM and supple Chest: Chest palpation & inspection: normal inspection of the chest and normal palpation of entire chest
== END 2022-10-19 08:40 | disposition home or self-care (01) ==
PROVIDERS: Emergency Provider Nurse Practitioner Family; PCP Internal Medicine
DX: U07.1 COVID-19 (principal); I10 Essential (primary) hypertension; E78.5 Hyperlipidemia, unspecified; E66.9 Obesity, unspecified; Z68.33 Body mass index [BMI] 33.0-33.9, adult; M81.0 Age-related osteoporosis without current pathological fracture
CPT/HCPCS: 99211; G0463

== ENCOUNTER → 2022-10-31 07:49 | Outpatient (CLI) | payer OTHER, SELFPAY ==
--- NOTE | ~2022-10-31 | MM_ITS ---
EXAMINATION: MM screening [facility] w [facility] HISTORY: Screening TECHNIQUE: Craniocaudal and mediolateral oblique 3-D tomosynthesis images were obtained and synthetic 2-D images were generated. CAD analysis was submitted and interpreted. COMPARISON: Comparison to multiple prior studies sequentially, with oldest reviewed study dated 08/27. BREAST PARENCHYMAL COMPOSITION: There are scattered areas of fibroglandular density. FINDINGS: There is no evidence of suspicious mass, calcification, or architectural distortion to sugg est malignancy in either breast. There has been no suspicious interval change. IMPRESSION: 1. No mammographic evidence of malignancy. 2. Recommend routine screening mammography in one year. BI-RADS Category 1: Negative Reviewed, dictated and finalized at location A.
== END ==
PROVIDERS: PCP Obstetrics & Gynecology; Visit Provider Obstetrics & Gynecology
DX: Z12.31 Encounter for screening mammogram for malignant neoplasm of breast (principal)
CPT/HCPCS: 77063; 77067

== ENCOUNTER → 2023-03-01 09:38 | Outpatient (CLI) | payer OTHER, SELFPAY ==
--- NOTE | ~2023-03-01 | CT_ITS ---
EXAMINATION: CT abdomen pelvis w con DATE: 03/01/2023 10:29 INDICATION: Left lower quadrant abdominal pain. History of diverticulitis. TECHNIQUE: Computed tomography (CT) of the abdomen and pelvis was performed with 100 CC Omnipaque 350 intravenous contrast. Automated exposure control and iterative reconstruction technique were employe d. Exam dose: 1076.88 mGy-cm total exam DLP. COMPARISON: 01/2021 CT abdomen pelvis FINDINGS: The lung bases are clear. Heart size is normal. No pericardial or pleural effusion. Small sliding hiatal hernia. The liver, gallbladder, bile ducts, spleen, pancreas, pancreatic duct, and adrenal glands are unremar kable. Approximately 6 mm new hypoenhancing lesion of left kidney, not present on 05/01/2020 CT abdomen exami nation with IV contrast material. 6-[address] abdomen follow-up is recommended with attention to th is area. 3.5 mm lower pole right renal cyst. No urinary tract calculus or hydroureteronephrosis. There is atherosclerotic calcification of the abdominal aorta but no aneurysm. No intraperitoneal or retroperitoneal or pelvic mass lesion or adenopathy or ascites. Normal appendix. Diverticulosis of the colon, primarily involving the left colon; no CT evidence of d iverticulitis. No bowel obstruction or intraperitoneal free air. The uterus, adnexal areas and urinary bladder are unremarkable. Small fat-containing umbilical hernia. No suspicious osteolytic or osteoblastic lesions are noted. Degenerative spurring of the thoracic spi ne. Degenerative changes apophyseal joints of the lumbar spine with minimal grade 1 anterolisthesis a t L4-5. No suspicious osteolytic or osteoblastic lesions are noted. IMPRESSION: New indeterminate 6 mm hypoattenuating lesion of the anterolateral upper pole left kidne y since 05/01/2020; 6-[address] abdomen follow-up is recommended with attention to this area 3.5 mm lower pole right renal cyst Small sliding hiatal hernia Diverticulosis of the colon; no CT evidence of diverticulitis Reviewed, dictated and finalized at Location A. Reviewed, dictated and finalized at location B. IMPRESSION: New indeterminate 6 mm hypoattenuating lesion of the anterolateral upper pole left kidney since 05/01/2020; 6-[address] abdomen follow-up is rec ommended with attention to this area 3.5 mm lower pole right renal cyst Small sliding hiatal hernia Diverticulosis of the colon; no CT evidence of diverticulitis
[2023-03-01 10:21] LABS: Estimated Glomerular Filt Rate > 60
== END ==
PROVIDERS: PCP Nurse Practitioner; Visit Provider Nurse Practitioner
DX: R10.32 Left lower quadrant pain (principal); K57.30 Diverticulosis of large intestine without perforation or abscess without bleeding; N28.1 Cyst of kidney, acquired; K44.9 Diaphragmatic hernia without obstruction or gangrene
CPT/HCPCS: 74177; Q9967

== ENCOUNTER 2023-03-11 13:59 | Emergency (ER) | payer OTHER, SELFPAY ==
[2023-03-11 14:13] VITALS: BP 138/83; PULSE 87; RESP 20; TEMP 36.2; O2SAT 98
--- NOTE | 2023-03-11 14:46 | ED.EAR ---
HPI - Ear Problem General Chief complaint: Ear Stated complaint: right ear pain Time Seen by Provider: 03/11/23 14:46 Source: patient Mode of arrival: ambulatory Limitations: no limitations History of Present Illness HPI Narrative: 62-year-old female presented for complaint of right ear ache and fullness since yesterday. States this started with a headache, then she developed right ear pressure and water sound when turning her head. Denies dizziness, ear drainage, tinnitus, nausea vomiting, fevers or chills. MD Complaint: ear pain Related Data Home Medications Medication Instructions Recorded Confirmed polyvinyl alcohol-povidone 2.7 %-2 1 drp EACH EYE DIRECTED 05/23/21 02/24/23 % eye drops Allergies Allergy/AdvReac Type Severity Reaction Status Date / Time neomycin Allergy Intermediate BLISTERS, Verified 02/24/23 10:51 BREAKS OUT Sulfa (Sulfonamide Allergy Unknown Unknown Verified 02/24/23 10:51 Antibiotics) Review of Systems Review of Systems: CONSTITUTIONAL: Denies malaise, chills, or fever. EYES: Denies visual changes, redness, or discharge. ENT: Denies rhinorrhea, congestion, sinus pain, and sore throat. Reports ear pain CARDIOVASCULAR: Denies chest pain, palpitations, or edema. RESPIRATORY: Denies cough or dyspnea. GASTROINTESTINAL: Denies abdominal pain, nausea, vomiting, diarrhea SKIN: Denies rash or itching. MUSCULOSKELETAL: Denies myalgia. NEUROLOGIC: Denies headache. All systems reviewed & are unremarkable except as noted in HPI and below PMFSH Past Medical History Medical History Age-related osteoporosis without current pathological fracture Anxiety Chronic GERD COVID-19 Epigastric abdominal pain Essential (primary) hypertension Hyperlipidemia Left sided abdominal pain Obese Social History Social History Smoking status: Never smoker Second hand tobacco smoke exposure: No Alcohol intake: never Substance use: never Substance use type: does not use Gender identity (if verbalized by the patient): Female Comments At time of signature, agree with nursing past medical, surgical, social and family history. There is no relevant family history pertinent to the presenting complaint Exam Narrative: GENERAL: Well-appearing, well-nourished, and in no acute distress. HEAD: Normocephalic EYES: PERRLA, conjunctivae clear ENT: Nares clear. Mucous membranes moist. TMs pearly burgess with dull light reflex bilaterally, mild right clear effusion; no tragal tenderness. Oropharynx not erythematous without lesions. Tonsils not enlarged and without exudate, no drooling, no hoarseness, no trismus, uvula midline. NECK: Supple. No lymphadenopathy CHEST: Clear to auscultation, breath sounds equal. No wheezing, rhonchi, rales, or stridor. No respiratory distress, speaks in full sentences. HEART: Regular rate and rhythm. No murmur heard. SKIN: Warm, dry, no rash. NEURO: Alert and oriented x3. PSYCH: Normal mood and affect Course Course Emergency Course: Patient is aware of diagnosis, understands and agrees to treatment plan. Anticipatory guidance given. Patient agrees to follow-up as directed and is aware of reasons to seek care at the emergency department. Portions of this record may have been created with voice recognition software Level of Care: Express Care Visit Vital Signs Vital signs: Vital Signs Temperature 97.2 F L 03/11/23 14:13 Pulse Rate 87 03/11/23 14:13 Respiratory Rate 20 03/11/23 14:13 Blood Pressure 138/83 03/11/23 14:13 Pulse Oximetry 98 03/11/23 14:13 Oxygen Delivery Room Air 03/11/23 14:13 Temperature 97.2 F L 03/11/23 14:13 Pulse Rate 87 03/11/23 14:13 Respiratory Rate 20 03/11/23 14:13 Blood Pressure 138/83 03/11/23 14:13 Pulse Oximetry 98 03/11/23 14:13 Oxygen Delivery Room Air 03/11/23 14:13
== END 2023-03-11 15:03 | disposition home or self-care (01) ==
PROVIDERS: Emergency Provider Nurse Practitioner Family; PCP Emergency Medicine
DX: H92.01 Otalgia, right ear (principal); K21.9 Gastro-esophageal reflux disease without esophagitis; I10 Essential (primary) hypertension; E03.9 Hypothyroidism, unspecified; M81.0 Age-related osteoporosis without current pathological fracture; E78.5 Hyperlipidemia, unspecified; E66.9 Obesity, unspecified; Z68.39 Body mass index [BMI] 39.0-39.9, adult
CPT/HCPCS: 99211; G0463

== ENCOUNTER 2023-03-15 05:54 | Emergency (ER) | payer OTHER, SELFPAY ==
--- NOTE | ~2023-03-15 | CT_ITS ---
EXAMINATION: CT soft tissue neck w con DATE: 03/15/2023 08:38 INDICATION: Neck pain. Right ear pain. Fever. TECHNIQUE: Computed tomography (CT) of the neck was performed with 75 mL Omnipaque-350 intravenous co ntrast. Automated exposure control and iterative reconstruction technique were employed. The dose-neida gth product was 617.26 mGy-cm. COMPARISON: None FINDINGS: The major salivary glands are normal. The pharynx and larynx are normal. There are subcenti meter nodules in the thyroid, likely not clinically significant. There are no pathologically enlarged lymph nodes. There is 0% stenosis of the proximal internal carotid arteries relative to normal dista l artery lumen diameters. The mastoid air cells are normal. There is mild mucosal thickening in the e thmoid sinuses. There is severe cervical spondylosis. IMPRESSION: 1. No etiology for the patient's symptoms. Reviewed, dictated and finalized at location A.
[2023-03-15 05:59] VITALS: BP 154/70; PULSE 103; RESP 16; TEMP 36.8; O2SAT 97
[2023-03-15 06:25] LABS: Basophils Percent Auto 0.4 % (0.2-1.2); Eosinophils Absolute Auto 0.2 K/mm3 (0-0.3); Eosinophils Percent Auto 2.7 % (0-4.4); Hematocrit 45.4 % (37.0-47.0); Hemoglobin 14.7 g/dL (12.0-15.0); Immature Granulocyte Absolute 0.02 K/mm3 (0.00-0.031); Immature Granulocyte Percent A 0.4 % (0-0.5); Immature Platelet Fraction Pct 2.5 % (0.9-11.2); Lymphocytes Absolute Auto 1.38 K/mm3 (0.9-3.2); Lymphocytes Percent Auto 24.9 % (18.3-44.2); Mean Corpuscular HGB Conc 32.4 g/dl (32-36); Mean Corpuscular Hemoglobin 27.7 pg (26-34); Mean Corpuscular Volume 85.7 fl (80-100); Monocytes Absolute Auto 0.4 K/mm3 (0.1-0.6); Monocytes Percent Auto 7.2 % (2.6-8.5); Neutrophils Absolute Auto 3.6 K/mm3 (1.3-6.7); Neutrophils Percent Auto 64.4 % (45.5-73.1); Platelet Count Result 139 k/mm3 (150-375); Red Cell Distribution Width 13.9 % (11.5-14.5); White Blood Count 5.5 K/mm3 (4.5-10.0)
[2023-03-15 06:33] LABS: Alanine Aminotransferase 89 U/L (6-35); Albumin Level 3.9 g/dL (3.5-5.1); Alkaline Phosphatase 114 U/L (38-126); Anion Gap 8 mmol/L (8-16); Aspartate Amino Transferase 70 U/L (14-36); Blood Urea Nitrogen 10 mg/dL (7-17); Calcium 8.8 mg/dL (8.4-10.2); Carbon Dioxide 23 mmol/L (22-30); Chloride 105 mmol/L (98-107); Estimated CRCL calculation 93 ml/min; Estimated Glomerular Filt Rate > 60; Glucose 171 mg/dL (65-110); Potassium 3.8 mmol/L (3.4-5.0); Sodium 136 mmol/L (137-145)
[2023-03-15 06:48] LABS: Strep Group A RT-PCR NOT DETECTED (Negative)
[2023-03-15 06:59] LABS: Influenza A QL RT-PCR Negative (Negative); Influenza B QL RT-PCR Negative (Negative); SARS-CoV-2 RNA PCR Negative (Negative)
--- NOTE | 2023-03-15 07:15 | PC.NURSE ---
This RN assumed care of pt from LARA Vanessa at this time.
--- NOTE | 2023-03-15 07:22 | ED.EAR ---
HPI - Ear Problem General Chief complaint: Ear <Elvira James MD - Last Filed: 03/16/23 06:01> Stated complaint: right ear pain <Elvira James MD - Last Filed: 03/16/23 06:01> Time Seen by Provider: 03/15/23 06:03 <Elvira James MD - Last Filed: 03/16/23 06:01> Source: patient and RN notes reviewed <Elvira James MD - Last Filed: 03/16/23 06:01> Mode of arrival: ambulatory <Elvira James MD - Last Filed: 03/16/23 06:01> Limitations: no limitations <Elvira James MD - Last Filed: 03/16/23 06:01> History of Present Illness HPI Narrative: This is a 62 year old female who presents for evaluation of right ear pain. She reports having right ear pain for 5 days. She noticed yesterday she was having fever 101 F. She reports pain now to right neck under her ear. She has been taking tylenol and claritin for her ear pain. She was evaluated at [facility] for her ear pain and she was told she had fluid in her ear. She last took tylenol 4 hours ago. <Elvira James MD - Last Filed: 03/16/23 06:01> Related Data Home medications: Home Medications Medication Instructions Recorded Confirmed polyvinyl alcohol-povidone 2.7 %-2 1 drp EACH EYE DIRECTED 05/23/21 02/24/23 % eye drops <Elvira James MD - Last Filed: 03/16/23 06:01> Allergies/adverse reactions: Allergies Allergy/AdvReac Type Severity Reaction Status Date / Time neomycin Allergy Intermediate BLISTERS, Verified 03/15/23 05:54 BREAKS OUT Sulfa (Sulfonamide Allergy Unknown Unknown Verified 03/15/23 05:54 Antibiotics) <Elvira James MD - Last Filed: 03/16/23 06:01> Review of Systems Review of Systems: All systems reviewed & are unremarkable except as noted in HPI and below <Elvira James MD - Last Filed: 03/16/23 06:01> Constitutional: Constitutional: Reports fever(s) <Elvira James MD - Last Filed: 03/16/23 06:01> PMFSH Past Medical History Medical History: Medical History Age-related osteoporosis without current pathological fracture Anxiety Chronic GERD COVID-19 Epigastric abdominal pain Essential (primary) hypertension Hyperlipidemia Left sided abdominal pain Obese <Elvira James MD - Last Filed: 03/16/23 06:01> Social History Social History: Social History Smoking status: Never smoker Second hand tobacco smoke exposure: No Alcohol intake: never Substance use: never Substance use type: does not use Gender identity (if verbalized by the patient): Female <Elvira James MD - Last Filed: 03/16/23 06:01> Exam Const: General: no acute distress and alert <Elvira James MD - Last Filed: 03/16/23 06:01> Nutritional Appearance: well nourished <Elvira James MD - Last Filed: 03/16/23 06:01> Orientation/consciousness: patient oriented x3 <Elvira James MD - Last Filed: 03/16/23 06:01> HENMT: Ears: external ears normal, TM's normal bilaterally and EAC's normal <Elvira James MD - Last Filed: 03/16/23 06:01> Face/Nose/Sinus: Normal external nose present <Elvira James MD - Last Filed: 03/16/23 06:01> Face and sinus: normal facial exam <Elvira James MD - Last Filed: 03/16/23 06:01> Mouth: Yes Normal oral and palatal mucosa present, Yes lip normal and Yes moist mucous membranes <Elvira James MD - Last Filed: 03/16/23 06:01> Teeth and gingiva: dentition normal <Elvira James MD - Last Filed: 03/16/23 06:01> Throat: posterior oropharynx normal and uvula midline <Elvira James MD - Last Filed: 03/16/23 06:01> Eyes: Pupils: Equal, round and reactive pupils present <Elvira Jamse MD - Last Filed: 03/16/23 06:01> EOM: EOMs intact bilaterally <Elvira James MD - Last Filed: 03/16/23 06:01> Neck: Neck: normal visual inspection and no lymphadenopathy <Elvira Prado
[2023-03-15 09:19] VITALS: BP 135/76; PULSE 84; RESP 19; O2SAT 97
== END 2023-03-15 09:29 | disposition home or self-care (01) ==
PROVIDERS: General Practice; Emergency Provider Emergency Medicine
DX: H92.01 Otalgia, right ear (principal); R42 Dizziness and giddiness; I10 Essential (primary) hypertension; E78.5 Hyperlipidemia, unspecified; Z20.822 Contact with and (suspected) exposure to COVID-19
CPT/HCPCS: 36415; 70491; 80053; 85025; 85055; 87636; 87651; 99284; Q9967

== ENCOUNTER 2023-03-18 08:05 | Emergency (ER) | payer OTHER, SELFPAY ==
--- NOTE | 2023-03-18 08:11 | ED.EAR ---
HPI - Ear Problem General Chief complaint: Ear Stated complaint: right ear pain Time Seen by Provider: 03/18/23 08:11 Source: patient Mode of arrival: ambulatory Limitations: no limitations History of Present Illness HPI Narrative: Patient is a 62-year-old female that presents with bilateral ear fullness for 1 week. Patient was seen here 03/11 and was seen in [facility] 03/15. Patient had head and neck CT showing fluid in right ear. Patient was negative for all upper respiratory infections. Patient denies any congestion, sore throat, cough, sinus pressure. Patient has been taking Claritin and did use Afrin for 2 days. Patient states Afrin really helped open sinuses. Patient has also been taking meclizine as needed but states it makes her extremely drowsy. Patient denies any hearing loss. Patient reports last night and this morning she had increased nausea and has been having dry heaves along with intermittent vomiting. Patient does not currently have a primary care provider but states she does have an appointment with a new doctor 03/24. Denies any headache, vision changes, unilateral weakness. MD Complaint: ear pain Related Data Home Medications Medication Instructions Recorded Confirmed polyvinyl alcohol-povidone 2.7 %-2 1 drp EACH EYE DIRECTED 05/23/21 03/18/23 % eye drops Allergies Allergy/AdvReac Type Severity Reaction Status Date / Time neomycin Allergy Intermediate BLISTERS, Verified 03/18/23 08:23 BREAKS OUT Sulfa (Sulfonamide Allergy Unknown Unknown Verified 03/18/23 08:23 Antibiotics) Review of Systems Review of Systems: All systems reviewed & are unremarkable except as noted in HPI and below Constitutional: Constitutional: Denies body ache(s), Denies chills, Denies fever(s), Denies headache(s) and Denies malaise Eyes: Eyes: Denies blurry vision, Denies eye discharge and Denies irritation ENT: Reports vertigo, Denies ear discharge, Reports otalgia, Denies headache(s), Denies hearing loss, Denies nasal congestion, Denies nasal discharge, Reports tinnitus and Denies sore throat Cardiovascular: Cardiovascular: Denies chest pain, Denies edema, Denies palpitations and Denies dyspnea on exertion Respiratory: Respiratory: Denies cough and Denies dyspnea on exertion Gastrointestinal: Gastrointestinal: Denies abdominal pain, Denies diarrhea, Reports nausea and Reports vomiting Musculoskeletal: Musculoskeletal: Denies back pain, Denies arthralgias and Denies muscle weakness Integumentary/Breasts: Skin/Breast: Denies pruritus and Denies rash Neurologic: Denies headache(s) Psychiatric: Psychiatric: Reports no additional psychiatric complaints Endocrine: Endocrine: Denies palpitations PMFSH Past Medical History Medical History Age-related osteoporosis without current pathological fracture Anxiety Chronic GERD COVID-19 Epigastric abdominal pain Essential (primary) hypertension Hyperlipidemia Left sided abdominal pain Obese Social History Social History Smoking status: Never smoker Second hand tobacco smoke exposure: No Alcohol intake: never Substance use: never Substance use type: does not use Gender identity (if verbalized by the patient): Female Comments At time of signature, agree with nursing past medical, surgical, social and family history. There is no relevant family history pertinent to the presenting complaint? Exam Const: General: cooperative, healthy appearing, no acute distress and well nourished Nutritional Appearance: well nourished Orientation/consciousness: patient oriented x3 Limitations: no limitations HENMT: Head: normal to inspection, normocephalic and atraumatic Ears: hearing grossly normal bilaterally, TM normal on the left, EAC's normal, no periauricular adenopathy and TM abnormal dull on the right and with fluid behind th
[2023-03-18 08:16] VITALS: BP 132/65; PULSE 108; RESP 16; TEMP 37.1; O2SAT 97
== END 2023-03-18 08:53 | disposition home or self-care (01) ==
PROVIDERS: Emergency Provider Nurse Practitioner Family; PCP Family Medicine
DX: H93.8X1 Other specified disorders of right ear (principal); R11.2 Nausea with vomiting, unspecified; K21.9 Gastro-esophageal reflux disease without esophagitis; I10 Essential (primary) hypertension; E78.5 Hyperlipidemia, unspecified; E66.9 Obesity, unspecified; Z68.38 Body mass index [BMI] 38.0-38.9, adult; Z86.16 Personal history of COVID-19; M81.0 Age-related osteoporosis without current pathological fracture; F41.9 Anxiety disorder, unspecified
CPT/HCPCS: 99213; G0463

== ENCOUNTER 2023-09-17 08:01 | Outpatient (CLI) | payer MEDICARE, SELFPAY ==
--- NOTE | ~2023-09-17 | CT_ITS ---
CT of the Abdomen and Pelvis: Indication: Microscopic hematuria Technique: 2.5 mm axial scans were obtained through the abdomen and pelvis prior to and following in travenous administration of 130 cc of Omnipaque 350. Dose reduction technique was used on this scan b y utilizing automated exposure control and iterative reconstruction technique. The dose-length produc t (DLP) was 2200.23 mGy-cm. COMPARISON: 03/01/2023 Findings: Scans through the lung bases are unremarkable. The liver, spleen, pancreas, gallbladder, adrenals and kidneys are within normal limits. No evidence of aortic aneurysm. No lymphadenopathy. No bowel obstruction or bowel wall thickening. There is no evidence to suggest acute appendicitis. Images through the pelvis were performed. Urinary bladder unremarkable. No adnexal mass seen. No asci tereso. Impression: No significant abnormalities seen. Reviewed, dictated and finalized at [facility]. AL HEALTH COORDINATOR Impression: No significant abnormalities seen.
--- NOTE | ~2023-09-17 | XR_ITS ---
EXAMINATION: XR abdomen/kub 1V INDICATION: Microscopic hematuria TECHNIQUE: Supine views of the abdomen were obtained on 2 radiographs. COMPARISON: CT of the same day FINDINGS: No urolithiasis identified. A moderate volume of colonic stool is present. The bowel gas p attern is normal. IMPRESSION: 1. No urolithiasis identified. Reviewed, dictated and finalized at location B. CAL ADMINISTRATOR
[2023-09-17 08:26] LABS: Estimated Glomerular Filt Rate > 60
== END 2023-09-17 08:02 ==
PROVIDERS: PCP Internal Medicine; Visit Provider Physician Assistant
DX: R31.29 Other microscopic hematuria (principal)
CPT/HCPCS: 74018; 74178; Q9967

== ENCOUNTER 2023-11-11 07:02 | Outpatient (CLI) | payer MEDICARE, SELFPAY ==
--- NOTE | ~2023-11-11 | MM_ITS ---
EXAMINATION: MM screening [facility] BI w [facility] HISTORY: Screening TECHNIQUE: Craniocaudal and mediolateral oblique 3-D tomosynthesis images were obtained and synthetic 2-D images were generated. CAD analysis was submitted and interpreted. COMPARISON: Comparison to multiple prior studies sequentially, with oldest reviewed study dated 09/20. BREAST PARENCHYMAL COMPOSITION: There are scattered areas of fibroglandular density. FINDINGS: There is no evidence of suspicious mass, calcification, or architectural distortion to sugg est malignancy in either breast. There has been no suspicious interval change. IMPRESSION: 1. No mammographic evidence of malignancy. 2. Recommend routine screening mammography in one year. BI-RADS Category 1: Negative Reviewed, dictated and finalized at location A.
== END 2023-11-11 07:03 ==
LOC: MICIMG 07:03
PROVIDERS: PCP Obstetrics & Gynecology; Visit Provider Obstetrics & Gynecology
DX: Z12.31 Encounter for screening mammogram for malignant neoplasm of breast (principal)
CPT/HCPCS: 77063; 77067

== ENCOUNTER 2023-11-11 10:22 | Outpatient (CLI) | payer MEDICARE, SELFPAY ==
--- NOTE | ~2023-11-11 | XR_ITS ---
XR hip BI 2V w AP pelvis DATE: 11/11/2023 10:47 INDICATION: Right hip pain TECHNIQUE: AP pelvis. AP and lateral views of each hip. COMPARISON: None FINDINGS: Mild bilateral hip osteophytes, greater on the left. Mild osteitis pubis. Normal alignment at the pubic symphysis and sacroiliac joints. No pelvic fracture or bone destruction. No fracture or dislocation, avascular necrosis or bone destruction of either hip. IMPRESSION: Mild bilateral hip osteoarthritis, left greater than right Mild osteitis pubis Reviewed, dictated and finalized at location B.
== END 2023-11-11 10:23 ==
LOC: MICIMG 10:23
PROVIDERS: PCP Physician Assistant; Visit Provider Physician Assistant
DX: M16.0 Bilateral primary osteoarthritis of hip (principal)
CPT/HCPCS: 73521

== ENCOUNTER 2023-11-12 13:01 | Outpatient (CLI) | payer MEDICARE, SELFPAY ==
--- NOTE | ~2023-11-12 | DEXA_ITS ---
Bone Density Report Name: SHAWNEE OMALLEY Age: 63 Sex: Female Ethnicity: White Date of : 1960 Indication: osteopenia; monitoring treatment; parental hip fracture; height loss; prior fracture; postmenopausal Referring Provider: Jesse Pollard Study: Bone densitometry was performed. Exam Date: November 12, 2023 Accession number: [id number] Bone Density: Region BMD T-score Z-score Classification AP Spine (L1-L4) 0.843 -1.9 -0.1 Osteopenia Femoral Neck (Left) 0.600 -2.2 -0.7 Osteopenia Total Hip (Left) 0.875 -0.5 0.7 Normal Femoral Neck (Right) 0.694 -1.4 0.1 Osteopenia Total Hip (Right) 0.885 -0.5 0.8 Normal Total Hip Mean 0.880 -0.5 0.8 Normal World Health Organization criteria for BMD impression classify patients as: Normal (T-score at or above -1.0), Osteopenia (T-score between -1.0 and -2.5), or Osteoporosis (T-score at or below -2.5). 10-year Fracture Risk: FRAX not reported because: Treated for osteoporosis Previous Exams: Region Exam Age BMD T-score BMD Change BMD Change Date g/cm2 vs Baseline vs Previous AP Spine(L1-L4) 11/12/2023 63 0.843 -1.9 -0.028* 0.010 09/06/2021 61 0.833 -1.9 -0.038* 0.003 08/07/2019 59 0.830 -2.0 -0.041 -0.031 07/29/2017 56 0.861 -1.7 -0.010 0.009 07/27/2015 54 0.852 -1.8 -0.019 -0.002 07/22/2013 52 0.854 -1.8 -0.017 -0.033 06/11/2011 50 0.887 -1.5 0.016 -0.024 05/09/2010 49 0.911 -1.2 0.040 0.040 04/04/2008 47 0.871 -1.6 Total Hip(Left) 11/12/2023 63 0.875 -0.5 -0.009 0.032* 09/06/2021 61 0.844 -0.8 -0.041* 0.021 08/07/2019 59 0.822 -1.0 -0.062 -0.036 07/29/2017 56 0.858 -0.7 -0.026 -0.015 07/27/2015 54 0.873 -0.6 -0.011 0.034 07/22/2013 52 0.839 -0.8 -0.045 0.022 06/11/2011 50 0.818 -1.0 -0.067* -0.015 05/09/2010 49 0.833 -0.9 -0.052 -0.052 04/04/2008 47 0.884 -0.5 Total Hip(Right) 11/12/2023 63 0.885 -0.5 -0.009 0.033* 09/06/2021 61 0.852 -0.7 -0.042* 0.037 08/07/2019 59 0.815 -1.0 -0.079 -0.042 07/29/2017 56 0.857 -0.7 -0.037* 0.009 07/27/2015 54 0.849 -0.8 -0.045* 0.006 07/22/2013 52 0.843 -0.8 -0.051 -0.032 06/11/2011 50 0.875 -0.5 -0.019 0.008 05/09/2010 49 0.867 -0.6 -
== END 2023-11-12 13:02 ==
PROVIDERS: PCP Physician Assistant; Visit Provider Internal Medicine
DX: M81.0 Age-related osteoporosis without current pathological fracture (principal); M85.88 Other specified disorders of bone density and structure, other site; M85.852 Other specified disorders of bone density and structure, left thigh; M85.851 Other specified disorders of bone density and structure, right thigh
CPT/HCPCS: 77080

== ENCOUNTER 2024-11-14 07:14 | Outpatient (CLI) | payer MEDICARE, SELFPAY ==
--- NOTE | ~2024-11-14 | MM_ITS ---
EXAMINATION: MM screening [facility] BI [facility] HISTORY: Screening TECHNIQUE: Craniocaudal and mediolateral oblique 3-D tomosynthesis images were obtained and synthetic 2-D images were generated. CAD analysis was submitted and interpreted. COMPARISON: Comparison to multiple prior studies sequentially, with oldest reviewed study dated 09/26. BREAST PARENCHYMAL COMPOSITION: Not dense: There are scattered areas of fibroglandular density. FINDINGS: There is no evidence of suspicious mass, calcification, or architectural distortion to sugg est malignancy in either breast. There has been no suspicious interval change. IMPRESSION: 1. No mammographic evidence of malignancy. 2. Recommend routine screening mammography in one year. BI-RADS Category 1: Negative Reviewed, dictated and finalized at location A.
== END 2024-11-14 07:15 | disposition home or self-care (01) ==
PROVIDERS: PCP Internal Medicine; Visit Provider Obstetrics & Gynecology
DX: Z12.31 Encounter for screening mammogram for malignant neoplasm of breast (principal)
CPT/HCPCS: 77063; 77067